=== PATIENT | female | born 1985 | race Caucasian/White ===

== ENCOUNTER 2017-08-16 00:50 | Inpatient (IN) | payer OTHER ==
[~2017-08-16] VITALS: Ht 154.9 cm; Wt 71.4 kg
[2017-08-16] VITALS (15 sets, daily range): BP systolic 96–131; BP diastolic 51–75
[2017-08-16 01:46] LABS: BASOPHIL (%) 0.2 % (0-1); EOSINOPHIL (%) 1.1 % (0-5); EOSINOPHIL COUNT 0.1 K/uL (0-0.3); HEMATOCRIT 33.5 % (36.0-46.0); HEMOGLOBIN 11.2 G/DL (11.9-15.5); IMMATURE GRANULOCYTE (%) 0.5 % (0.0-0.7); LYMPHOCYTE (%) 21.3 % (15-42); LYMPHOCYTE COUNT 2.3 K/uL (1.0-2.8); MCH 28.1 PG (29.0-34.0); MCHC 33.4 G/DL (30.0-36.0); MONOCYTE (%) 6.9 % (3-12); MONOCYTE COUNT 0.7 K/uL (0-0.8); NEUTROPHIL COUNT 7.5 K/uL (1.8-6.4); PLATELET COUNT 271 K/uL (156-360); RBC DIS.WIDTH-CV 13.7 % (11.8-14.6); RBC DIS.WIDTH-SD 41.4 % (39-53); RED BLOOD COUNT 3.99 M/uL (3.80-5.20); WHITE BLOOD COUNT 10.7 K/uL (4.1-10.2)
[2017-08-16] MEDS ORDERED: PRENATAL TABLE1 EAC3 PO (02:01)
[2017-08-16] MEDS ORDERED: ASPIRIN81 M2 PO (02:02)
[2017-08-17 06:39] LABS: BASOPHIL (%) 0.6 % (0-1); BASOPHIL COUNT 0.1 K/uL (0-0.1); EOSINOPHIL COUNT 0.2 K/uL (0-0.3); HEMATOCRIT 28.7 % (36.0-46.0); IMMATURE GRANULOCYTE (%) 0.5 % (0.0-0.7); LYMPHOCYTE (%) 30.4 % (15-42); LYMPHOCYTE COUNT 2.5 K/uL (1.0-2.8); MCH 27.5 PG (29.0-34.0); MCHC 32.1 G/DL (30.0-36.0); MCV 85.7 FL (83-99); MONOCYTE (%) 6.6 % (3-12); MONOCYTE COUNT 0.6 K/uL (0-0.8); NEUTROPHIL (%) 59.9 % (45-76); PLATELET COUNT 223 K/uL (156-360); RBC DIS.WIDTH-SD 42.2 % (39-53); RED BLOOD COUNT 3.35 M/uL (3.80-5.20); WHITE BLOOD COUNT 8.4 K/uL (4.1-10.2)
[2017-08-17 06:49] LABS: HEMOGLOBIN 9.2 G/DL (11.9-15.5)
== END 2017-08-17 15:00 | disposition home or self-care (01) | DRG 775 ==
LOC: LDRP-OP 00:50 → 2WEST 00:51
PROVIDERS: Advanced Practice Midwife
DX: O77.0 Labor and delivery complicated by meconium in amniotic fluid (principal); O69.81X1 Labor and delivery complicated by cord around neck, without compression, fetus 1; Z3A.39 39 weeks gestation of pregnancy; Z37.0 Single live birth; O12.04 Gestational edema, complicating childbirth; Z79.82 Long term (current) use of aspirin
CPT/HCPCS: 85025; C1755; J3010; J7120